=== PATIENT | female | born 1975 | race Hispanic/Latino ===

== ENCOUNTER 2018-01-25 09:08 | Inpatient (IN) | payer BC ==
[~2018-01-25] VITALS: Ht 165.1 cm; Wt 75.8 kg
[2018-01-25] VITALS (17 sets, daily range): BP systolic 92–127; BP diastolic 55–84
[2018-01-25 10:07] LABS: BASOPHIL (%) 0.2 % (0-1); EOSINOPHIL (%) 0.6 % (0-5); EOSINOPHIL COUNT 0.1 K/uL (0-0.3); HEMATOCRIT 33.1 % (36.0-46.0); HEMOGLOBIN 10.6 G/DL (11.9-15.5); IMMATURE GRANULOCYTE (%) 0.5 % (0.0-0.7); LYMPHOCYTE (%) 19.2 % (15-42); LYMPHOCYTE COUNT 1.7 K/uL (1.0-2.8); MCH 25.2 PG (29.0-34.0); MCV 78.8 FL (83-99); MONOCYTE (%) 7.3 % (3-12); MONOCYTE COUNT 0.6 K/uL (0-0.8); NEUTROPHIL (%) 72.2 % (45-76); NEUTROPHIL COUNT 6.3 K/uL (1.8-6.4); PLATELET COUNT 351 K/uL (156-360); RBC DIS.WIDTH-CV 14.8 % (11.8-14.6); RBC DIS.WIDTH-SD 41.9 % (39-53); WHITE BLOOD COUNT 8.7 K/uL (4.1-10.2)
[2018-01-25 11:38] LABS: AMPHETAMINE NEGATIVE (500 ng/mL); BARBITURATES NEGATIVE (200 ng/mL); BENZODIAZEPINES NEGATIVE (150 ng/mL); BUPRENORPHINE NEGATIVE (10 ng/mL); COCAINE NEGATIVE (150 ng/mL); METHADONE NEGATIVE (200 ng/mL); METHAMPHETAMINE NEGATIVE (500 ng/mL); OPIATES (MORPHINE) NEGATIVE (100 ng/mL); OXYCODONE NEGATIVE (100 ng/mL); PHENCYCLIDINE NEGATIVE (25 ng/mL); PROPOXYPHENE NEGATIVE (300 ng/mL); THC CANNABINOIDS NEGATIVE (50 ng/mL); TRICYCLIC ANTIDEPRESSANTS NEGATIVE (300 ng/mL)
[2018-01-26 00:02] VITALS: BP 111/69
[2018-01-26 00:32] VITALS: BP 113/66
[2018-01-26 01:02] VITALS: BP 112/66
[2018-01-26] MEDS ORDERED: IBUPROFEN800 MG PO (01:05)
[2018-01-26 02:57] VITALS: BP 96/54
[2018-01-26 22:30] VITALS: BP 103/63
== END 2018-01-27 10:43 | disposition home or self-care (01) | DRG 775 ==
LOC: LDRP-OP 09:08 → 2WEST 09:09 → LDRP-OP 03-02 21:47
PROVIDERS: Advanced Practice Midwife
DX: O36.5930 Maternal care for other known or suspected poor fetal growth, third trimester, not applicable or unspecified (principal); Z3A.39 39 weeks gestation of pregnancy; Z37.0 Single live birth
CPT/HCPCS: 85025; J0595; J7120